=== PATIENT | female | born 2000 | race Caucasian/White ===

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

== ENCOUNTER → 2024-10-02 | Outpatient (CLI) | payer OTHER ==
[~2024-10-02] MED LIST changes: +MONO-LINYAH1 EACH PO
[2024-10-02 15:44] LABS: Bacterial Vaginosis PCR Positive (NEGATIVE); Candida Group, PCR NOT DETECTED (NOT DETECT); Candida glabrata-krusei, PCR NOT DETECTED (NOT DETECT)
== END | disposition home or self-care (01) ==
LOC: LAB 13:36 → LAB SHORT 13:36
PROVIDERS: General Practice
DX: N89.8 Other specified noninflammatory disorders of vagina (principal)
CPT/HCPCS: 81515